=== PATIENT | female | born 2000 | race Two or more races ===

== ENCOUNTER 2024-06-16 05:36 | Emergency (ER) | payer OTHER ==
[~2024-06-16] VITALS: Ht 162.6 cm; Wt 59.0 kg
[2024-06-16] MEDS ORDERED: IBUP-1955 PO (07:36)
[2024-06-16 08:50] VITALS: BP 110/66; TEMP 98; O2SAT 97
== END 2024-06-16 08:50 ==
LOC: ER 05:38
DX: S09.90XA Unspecified injury of head, initial encounter (principal); F10.129 Alcohol abuse with intoxication, unspecified; R07.89 Other chest pain; Z91.040 Latex allergy status; V43.52XA Car driver injured in collision with other type car in traffic accident, initial encounter; Y93.89 Activity, other specified; Y92.488 Other paved roadways as the place of occurrence of the external cause; Y99.8 Other external cause status; Y90.9 Presence of alcohol in blood, level not specified
CPT/HCPCS: 70450-TC; 71045-TC; 72125-TC